=== PATIENT | male | born 1990 | race Caucasian/White ===

== ENCOUNTER 2020-05-30 15:56 | Emergency (ER) | payer OTHER ==
[~2020-05-30] VITALS: Ht 177.8 cm; Wt 65.8 kg
--- NOTE | 2020-05-30 16:33 | NUR ---
[email or web address], passed out in a garage. per ems, admits to taking "2 xanax pills" per ems, fentanyl use yesterday. pt yelling "methadone." PT AAOX3, VSS. RR EVEN & UNLABORED. DENIES CP, SOB, DIZZINESS, N/V AT THIS TIME. PT SEEN & EVAL'D BY DR. SELLERS. PLACED ON TUB OPERATOR, SR. WILL CONT TO MONITOR.
[2020-05-30 16:34] LABS: BASOPHILS # (AUTO) 0.1 /CMM (0.0-0.2); BASOPHILS % (AUTO) 0.7 % (0.0-2.0); HEMATOCRIT 47 % (39-51); HEMOGLOBIN 15.4 g/dL (13.5-17.5); LYMPHOCYTES # (AUTO) 1.4 /CMM (0.8-4.8); LYMPHOCYTES % (AUTO) 12.2 % (20.0-44.0); MEAN CORPUSCULAR HGB CONC 33 g/dl (31.0-36.0); MEAN CORPUSCULAR VOLUME 89 fL (80-96); MONOCYTES # (AUTO) 0.2 /CMM (0.1-1.30); MONOCYTES % (AUTO) 1.7 % (2.0-12.0); NEUTROPHILS % (AUTO) 85.4 % (43.0-81.0); PLATELET COUNT (AUTO) 327 /CMM (150-450); RED BLOOD CELL COUNT(AUTO) 5.32 MIL/uL (4.5-6.0); WHITE BLOOD COUNT (AUTO) 11.7 K/uL (4.3-11.0)
[2020-05-30 16:50] LABS: CALCIUM, SERUM 9.6 mg/dL (8.5-10.1); CARBON DIOXIDE 29 mmol/L (21-32); CHLORIDE 100 mmol/L (98-107); CREATININE 0.7 mg/dL (0.6-1.3); GLUCOSE 120 mg/dL (74-106); POTASSIUM 3.9 mmol/L (3.5-5.1); SODIUM SERUM 138 mmol/L (136-145); UREA NITROGEN, BLOOD 14 mg/dL (7-18)
[2020-05-30 16:56] LABS: ALANINE AMINOTRANSFERASE 23 U/L (12-78); ALBUMIN 4.8 g/dL (3.4-5.0); ALCOHOL, BLOOD < 3 mg/dL (0-0); ALKALINE PHOSPHATASE 75 U/L (46-116); ASPARTATE AMINOTRANSFERASE 22 U/L (15-37); BILIRUBIN,DIRECT 0.1 mg/dL (0.0-0.2); BILIRUBIN,TOTAL 0.7 mg/dL (0.2-1.0); SALICYLATE 1.6 mg/dL (2.8-20.0); TOTAL PROTEIN, SERUM 8.1 g/dL (6.4-8.2)
[2020-05-30 16:57] LABS: ACETAMINOPHEN 0 ug/ml (10-30)
[2020-05-30] MEDS ORDERED: ONDANSETRON HCL/PF 4 MG/2 ML VIAL ONE ×2 (19:41→22:38)
--- NOTE | 2020-05-30 19:48 | NUR ---
PT MEDICATED ORDERED
[2020-05-30 19:55] LABS: APPEARANCE,URINE Clear (CLEAR); BILIRUBIN,URINE Negative (NEGATIVE); BLOOD, URINE Negative Ery/uL (NEGATIVE); COLOR,URINE Yellow (YELLOW); KETONES,URINE 80 (NEGATIVE); LEUKOCYTE ESTERASE ,URINE Negative (NEGATIVE); NITRITE, URINE Negative (NEGATIVE); PH,URINE 6.5 (5.0-8.0); PROTEIN,URINE 30 mg/dl (NEGATIVE); UGLUCOSE Negative (NEGATIVE); UROBILINOGEN,URINE 0.2 EU/dL (0.2)
[2020-05-30] MEDS ORDERED: IV NS 0.9% 1,000 ML IV ONE (20:00)
[2020-05-30] MEDS ORDERED: ONDANSETRON HCL/PF - ER 4 MG/2 ML VIAL IV ONE (20:00)
--- NOTE | 2020-05-30 20:44 | NUR ---
COVID SWAB SENT TO LAB
--- NOTE | 2020-05-30 20:55 | NUR ---
RECEIVED CALL FROM [facility]IST[facility], SAID PT CAN STAY FOR ER OBS FOR WITHDRAWLS, CALLED ADMITING JOSHUA, ASKED FOR CLINICALS TO BE FAXED OVER TO [facility]
[2020-05-30] MEDS ORDERED: IV NS 0.9% 1,000 ML IV PRN (21:02)
[2020-05-30 21:10] LABS: BACTERIA,URINE Few /HPF (None Seen); MUCUS,URINE Moderate /LPF (None Seen); RBC,URINE NONE SEEN /HPF (0-2); SQUAMOUS EPITHELIAL CELL,UR Few /HPF (None Seen); URINE AMORPHOUS URATE Few /HPF (None Seen); WBC,URINE 0-2 /HPF (0-3)
[2020-05-30] MEDS ORDERED: ACETAMINOPHEN 325 MG TABLET PO PRN (21:30)
[2020-05-30] MEDS ORDERED: ONDANSETRON HCL/PF 4 MG/2 ML VIAL IVP PRN (21:30)
[2020-05-30] MEDS ORDERED: Z GUARD REMEDY 2 OZ OINT TP PRN (21:30)
--- NOTE | 2020-05-30 21:31 | NUR ---
Patient is resting comfortably in bed with eyes closed. Easily aroused. VSS
[2020-05-30] MEDS ORDERED: LORAZEPAM INJ 2 MG/ML VIAL IV ONE (23:00)
[2020-05-30] MEDS ORDERED: LORAZEPAM INJ 2 MG/ML VIAL ONE (23:08)
--- NOTE | 2020-05-30 23:22 | NUR ---
MEDICATED PER HAO LIU, FARM MACHINERY ERECTOR'S ORDER, PT ADAIR WELL. WILL CONT TO MONITOR.
--- NOTE | 2020-05-31 04:30 | NUR ---
PT RESTING COMFORTABLY IN BED. VSS. NO ACUTE DISTRESS NOTED. SITTER AT BEDSIDE FOR SAFETY. CALL LIGHT WITHIN REACH
--- NOTE | 2020-05-31 06:16 | NUR ---
Patient is resting comfortably in bed with eyes closed. Easily aroused. VSS
[2020-05-31] MEDS ORDERED: PANTOPRAZOLE 40 MG VIAL IV SCH (09:00)
--- NOTE | 2020-05-31 13:46 | NUR ---
CALLED [facility]... SHAYNE WILL COME BY TO [facility].
--- NOTE | 2020-05-31 14:07 | NUR ---
This SW met with the patient at bedside. Patient is a 29 year-old male. Per MD note, "[id number], passed out in a garage. per ems, admits to taking "2 xanax pills" per ems, fentanyl use yesterday." Patient remained lying in bed, eyes closed, asking to be discharged. Patient states he is currently having a xanax withdrawal. This SW informed the patient that she cannot discharge him but will let nursing know of this request. Patient reports living in [facility] but cannot recall the address. Patient reports he moved recently and doesn't remember. Patient reports living alone. Per patient, he has "ruined all relationships by using drugs". SW asked the patient how he ended up at [facility], patient states ambulance brought him from friend's place. This SW asked the patient if he had a number for this friend so they can pick him up. Patient reported he did not know the number. Per patient, he knows how to return home stating "take the orange line to the red line". Patient will need a TAP Card when he is medically cleared for discharge.
[2020-05-31] MEDS ORDERED: ONDANSETRON 4 MG TAB.RAPDIS SL ONE (14:30)
--- NOTE | 2020-05-31 14:35 | NUR ---
pt resting in bed. awake. stable vitals.
[2020-05-31] MEDS ORDERED: ONDANSETRON 4 MG TAB.RAPDIS ONE (14:37)
--- NOTE | 2020-05-31 14:45 | NUR ---
edy nonprofit director in to see patient.
--- NOTE | 2020-05-31 15:00 | NUR ---
pt awake, verbally responsive. ambulatory w/ steady gait. verbally discharge by debra snow [employer]. discharge in stable condition.
[2020-05-31 15:03] VITALS: BP 126/84
== END 2020-05-31 15:04 | disposition home or self-care (01) ==
LOC: ER 15:59 → UNDOADMOB 05-31 07:08 → INTOOBSV 05-31 07:08 → OBSER 05-31 07:08 → UNDODISOB 05-31 15:00 → ER 05-31 15:04
DX: F13.129 Sedative, hypnotic or anxiolytic abuse with intoxication, unspecified (principal); F15.129 Other stimulant abuse with intoxication, unspecified; F16.129 Hallucinogen abuse with intoxication, unspecified; G92 Toxic encephalopathy; E86.0 Dehydration; Z59.0 Homelessness; R11.10 Vomiting, unspecified
CPT/HCPCS: 36415; 80048; 80076; 80305; 80307; 80329; 81001; 84145; 85025; 87081; 87426; 96360; 96361; 96374; 96375; 96376 ×2; 99285; C9113; C9803; G0480; J2060; J2405 ×3; J7030; Q0162; 81000-TC; G0378